=== PATIENT | female | born 1995 | race Two or more races ===

== ENCOUNTER 2025-07-28 10:08 | Observation (INO) | payer MEDICAID, SELFPAY ==
[2025-07-28 10:22] VITALS: BP 126/76; PULSE 80
[2025-07-28 10:23] VITALS: BP 126/76; PULSE 80; RESP 18; RESP 99; TEMP 36.7; BMI 17.4
--- NOTE | 2025-07-28 15:01 | PD.LDPN ---
Documentation for date of: 07/28/25 OB Labor Progress Note Pelvic Exam Dilation (cm): 4 Effacement (%): 60 station: -3 Amniotic membrane status: Intact Contractions Monitor mode: External Contraction frequency: 2-3 Contraction intensity: Mild Status status: Category l Assessment and Plan Comments: Triage Note Claudia is a 29yo with SIUP at 38&2wk presenting to L&D for cramping. No lof, no vaginal bleeding. Normal movement. She had very quick delivery of baby #4, without very painful ctx, so she is nervous that she could deliver quickly again. PMhx/PNC significant for: -Hx of GHTN with 5th -PNC at [facility] in [place] ROS negative other than what was described above. Vitals wnl, afebrile General: well developed, well nourished, no acute distress, conversant Cardiac: normal heart rate Lungs: breathing without distress Abdomen: soft, gravid, non-tender, no rebound or guarding Extremities: no pain with palpation of calves SCE: 4/60/-2, posterior after 4 hours from first SCE NST: Reactive, +accels, no decels, mod [id number] Compt[place]: occasional ctx/irritability Assessment: Claudia is a 29yo with SIUP at 38&2wk with no evidence of active labor based on SCE and toco. Unchanged from 4cm after 4 hours. Vitals wnl, benign exam. Reassuring status. Plan: -Gave option to patient of overnight observation vs going home with strict return precautions for regular ctx. Discussed not able to induce prior to 39wk, so would have to be in active labor to proceed with delivery. She voiced her understanding and after discussing with her significant other, she would like to go home. They live 20 min away. -Continue routine follow up with OBGYN within 1 week -Discussed return precautions at length -Safe for discharge home at this time Brianna Nguyen MD
== END 2025-07-28 15:18 | disposition home or self-care (01) ==
PROVIDERS: Admitting Provider Obstetrics & Gynecology; Visit Provider Obstetrics & Gynecology
DX: O47.1 False labor at or after 37 completed weeks of gestation (principal); Z3A.38 38 weeks gestation of pregnancy
CPT/HCPCS: 59899

== ENCOUNTER 2025-07-30 13:18 | Inpatient (IN) | payer MEDICAID, SELFPAY ==
[2025-07-30] VITALS (24 sets, daily range): BP systolic 115–139; BP diastolic 61–90; PULSE 63–106; RESP 18–100; TEMP 36.8; BMI 38.2; BMI 38.0
--- NOTE | 2025-07-30 15:30 | PD.LDHP ---
Documentation for date of: 07/30/25 OB Labor/Induct. HPI History of Present Illness Chief complaint: contractions : 6 Para: 5 Term pregnancies: 5 pregnancies: 0 Living children: 5 History of Abortions: Spontaneous and Elective: 0 History of Vaginal deliveries: 5 History of sections: No History of : No VERNON: 08/10/25 Gestational Age (weeks): 38 Gestational Age (days): 3 History of present illness: Patient presents from OB visit where her OB did SCE and told her she was 6cm dilated and instructed her to present to L&D. She continues to have irregular ctx since noted 4cm 2 days ago. No LOF. No vaginal bleeding. Normal movement. No fevers/chills. History of Present Adequate Care: Yes Narrative: -Hx of GHTN with 5th -Hx of prior precipitous delivery -PNC at [facility] in [place] Labs Maternal Blood Type: O Pos Labs: Positive: Rubella Titre, Negative: RPR, Hepatitis B, Chlamydia, Gonorrhea and Group Beta Strep and Unknown: HIV Review of Systems Review of Systems Narrative Review of Systems: Review of Systems Systems Reviewed: All systems reviewed, normal except as documented Constitutional Constitutional: Denies body ache(s), Denies chills, Denies fever(s) and Denies headache(s) ENT Ears, Nose, Mouth, and Throat: Denies headache(s) and Denies vertigo Cardiovascular Cardiovascular: Denies chest pain, Denies palpitations, Denies dyspnea and Denies syncope Respiratory Respiratory: Denies cough, Denies dyspnea Gastrointestinal Gastrointestinal: Denies nausea and Denies vomiting Neurologic Neurologic: Denies convulsions, Denies headache(s), Denies other visual disturbances, Denies syncope and Denies vertigo Past Medical History Family History OTHER FAMILY HX: non-contributory Surgical History SURGICAL: Negative Section OTHER SURGICAL HX: denies any Social History SOCIAL: . 5 kids. Denies ETOH/illicit drug use/tobacco Past Medical History Comments PMH COMMENT: BMI 38 No hx of abnormal pap smears or STIs Meds Home Medications and Allergies Home Medications ?Medication ?Instructions ?Recorded ?Confirmed ?Type ferrous sulfate 325 mg (65 mg 325 mg PO QDAY 05/19/20 03/13/23 History iron) tablet (iron) vits no.130-ferrous fum 1 tab PO QDAY 08/30/20 06/24/23 History 27 mg iron-folic acid 800 mcg tablet ( Vitamin) Allergies Allergy/AdvReac Type Severity Reaction Status Date / Time No Known Allergies Allergy Verified 03/13/23 21:51 OB Exam Physical Exam Vital signs: Temp Pulse Resp BP 98.2 F 100 18 123/75 07/30/25 13:25 07/30/25 13:35 07/30/25 13:25 07/30/25 13:35 Narrative: General: well developed, well nourished, no acute distress, conversant Cardiac: normal heart rate Lungs: breathing without distress Abdomen: soft, gravid, non-tender, no rebound or guarding Extremities: no pain with palpation of calves Detailed Labor and Delivery Exam Dilation (cm): 6 Effacement (%): 80 Cervix position: mid station: -2 Consistency: soft Presentation: Vertex Membranes: intact monitor accelerations: 15x15 monitor decelerations: None loader variability: Moderate (11-25) Contraction frequency (min): q4-7min OB Results Labs 07/30/25 16:24 OB Assessment & Plan Assessment and Plan (1) Active labor at term: Status: Acute Assessment and plan: Claudia is a 29yo with SIUP at 38&3wk presenting in active labor. Irregular ctx, SCE: 6/80/-1. Vitals wnl, benign exam. Reassuring assessment. PMhx/PNC significant for: -Hx of GHTN with 5th -Hx of prior precipitous delivery -PNC at [facility]- no records available at time of admission other than labs per RN Plan: -Admit to L&D -Establish IV, routine labs -CEFM -Clear liquid diet -Oil Pumper/consent re: -GBS status: negative -Request records -Anticipate -Safe to proceed
[2025-07-30 16:43] LABS: Syphilis Nonreactive (Nonreactive)
[2025-07-30 16:46] LABS: Basophils # (Auto) 0.0 Thou/mm3 (0.0-0.2); Basophils % (Auto) 0 % (0-2.5); Eosinophils # (Auto) 0.1 Thou/mm3 (0.0-0.5); Eosinophils % (Auto) 1 % (0-10); Hematocrit 28.6 % (36.0-46.0); Hemoglobin 10.0 g/dL (12.0-16.0); Immature Granulocytes Auto 0.02 Thou/mm3 (0.00-0.00); Lymphocytes # (Auto) 1.5 Thou/mm3 (1.0-4.8); Lymphocytes % (Auto) 22 % (10-50); Mean Corpuscular HGB Conc 35.0 g/dl (31.0-37.0); Mean Corpuscular Hemoglobin 31.7 pg (25.0-35.0); Mean Corpuscular Volume 91 fL (80-100); Monocytes # (Auto) 0.3 Thou/mm3 (0.0-0.8); Monocytes % (Auto) 5 % (0-12); Neutrophils # (Auto) 5.0 Thou/mm3 (1.8-7.7); Neutrophils % (Auto) 72 % (37-80); Nucleated Red Blood Cell # 0.00 Thou/mm3 (0.00-0.00); Nucleated Red Blood Cell % 0 /100 WBC (0); Platelet Count 158 Thou/mm3 (140-440); RDW Standard Deviation 44.2 fL (36.4-46.3); Red Blood Count 3.15 Miln/mm3 (4.00-5.20); White Blood Count 7.0 Thou/mm3 (3.6-11.0)
[2025-07-30] MEDS: fentaNYL CIT INJ 50 mCg/ML AMP 2ML 100 MCG IVP (18:33)
[2025-07-30] MEDS: OXYTOCIN in NS 20 units 20 UNIT/1,000 ML BAG 125 UNIT IV (19:39)
[2025-07-30] MEDS: METHYLERGONOVINE INJ 0.2 MG/ML VIAL IM (19:50)
--- NOTE | 2025-07-30 19:55 | OBDSUM_ITS ---
Data (Ashley) Data Hx Section: No : 6 Term: 5 : 0 Livin Abortions: Spontaneous & Theraputic: 0 Delivery Data (Ashley) Labor Data Initiation of labor: Spontaneous Induction/Augmentation Agent: Artificial ROM ROM date: 07/30/25 ROM time: 16:19 Amniotic membrane rupture type: Artificial Amniotic fluid description: Clear Delivery Data Complete dilation date: 07/30/25 Complete dilation time: 19:33 delivery date: 07/30/25 [place] delivery time: 19:33 Placenta delivery date: 07/30/25 Placenta delivery time: 19:44 Delivered by: Brianna Nguyen Delivery Method Delivery method: Precipitous Vaginal Delivery Presentation: Vertex Anesthesia Type Anesthesia Type: None Placenta Cord blood sent to lab: Yes cord blood collection: Cord Blood Type EBL Estimated blood loss (ml): 300 Umbilical Cord cord description: 3 Vessels Additional Procedures Claudia is a 29yo s/p uncomplicated at 38&3wk after presenting in active labor, delivering at 1933 on 07/30/2025. On presentation, SCE was 6cm. She progressed with only AROM to complete. RNs were getting her ready for epidural when, per their report, infant's head spontaneously delivered. They pulled patient's legs back to assist with delivery of the shoulder and then the rest of the delivered. I was called after the delivery and when I presented to the room, infant was on warmer, vigorous. Apgars 8/9. Cord blood collected for typing. With fundal massage and cord traction, placenta delivered spontaneously and intact with 3 vessel centrally inserted cord (trailing membranes gently teased out in their entirety). Bimanual massage performed and IV pitocin given per protocol with fundus then firm at u-2cm and hemostasis noted. Inspection of perineum and vagina revealed small hemostatic gee at the posterior forschette, no repair needed. Sweep just within cervix/LINDA performed which retrieved a small amount of clot. 0.2mg IM methergine given for prophylaxis against future bleeding given grandmultiparity. All counts correct x2. Mom and infant were doing well when I left the room. Brianna Nguyen MD Complications Complications: none [place] Data (Ashley) [place] Data 's gender: Female Identification band number: [id number] 1 minute: 8 5 minutes: 9
[2025-07-31] VITALS: BP 139/85; PULSE 71; RESP 16; TEMP 37.2; O2SAT 98
[2025-07-31 04:00] VITALS: BP 113/70; PULSE 73; RESP 16; TEMP 36.9; O2SAT 98
[2025-07-31 05:52] LABS: Basophils # (Auto) 0.0 Thou/mm3 (0.0-0.2); Basophils % (Auto) 0 % (0-2.5); Eosinophils # (Auto) 0.0 Thou/mm3 (0.0-0.5); Eosinophils % (Auto) 1 % (0-10); Hematocrit 29.0 % (36.0-46.0); Hemoglobin 9.9 g/dL (12.0-16.0); Immature Granulocytes Auto 0.03 Thou/mm3 (0.00-0.00); Lymphocytes # (Auto) 1.5 Thou/mm3 (1.0-4.8); Lymphocytes % (Auto) 20 % (10-50); Mean Corpuscular HGB Conc 34.1 g/dl (31.0-37.0); Mean Corpuscular Hemoglobin 31.5 pg (25.0-35.0); Mean Corpuscular Volume 92 fL (80-100); Monocytes # (Auto) 0.4 Thou/mm3 (0.0-0.8); Monocytes % (Auto) 5 % (0-12); Neutrophils # (Auto) 5.9 Thou/mm3 (1.8-7.7); Neutrophils % (Auto) 75 % (37-80); Nucleated Red Blood Cell # 0.00 Thou/mm3 (0.00-0.00); Nucleated Red Blood Cell % 0 /100 WBC (0); Platelet Count 164 Thou/mm3 (140-440); RDW Standard Deviation 45.4 fL (36.4-46.3); Red Blood Count 3.14 Miln/mm3 (4.00-5.20); White Blood Count 7.9 Thou/mm3 (3.6-11.0)
[2025-07-31 09:38] VITALS: BP 118/75; PULSE 70; RESP 16; TEMP 36.9; O2SAT 98
--- NOTE | 2025-07-31 10:16 | PD.LDDS ---
DS: Providers Provider Date of admission: 07/30/25 14:07 Primary care physician: Tai Jackson MD Admitting Provider: Brianna Nguyen MD Attending Provider on Admission: Brianna Nguyen MD Consults: 07/30/25 19:53 Referral Routine Comment: Attending Provider on DC: Brianna Nguyen MD Discharging Provider: Brianna Nguyen MD DS: Diagnosis Discharge Diagnosis (1) Normal labor and delivery: Status: Acute (2) Obesity affecting in third trimester: Status: Acute Problem List Completed Was Problem List Reviewed/Reconciled?: Yes Summary/Hosp Course Brief History: Claudia is a 29yo s/p uncomplicated at 38&3wk after presenting in active labor, delivering at 1933 on 07/30/2025. She has had an uncomplicated course, meeting all milestones and feels ready for discharge home. She is ambulating without lightheadedness, tolerating regular diet no n/v, spontaneously voiding without issue. She has no chest pain or shortness of breath. No fevers or chills. Minimal, appropriate discomfort. Vitals normal, benign exam. Hemodynamically stable with no evidence of infection. PP Hgb 9.9 from 10. Peripartum Data Delivery Method: Precipitous Vaginal Delivery Status at Discharge Functional status at discharge: independent ambulation Overall status at discharge: patient is back to baseline Time Spent with Patient Time attestation: Total time spent providing and/or coordinating discharge services: Exam Vital Signs Temp Pulse Resp BP Pulse Ox O2 Del Method 98.5 F 70 16 118/75 98 Room Air 07/31/25 09:38 07/31/25 09:38 07/31/25 09:38 07/31/25 09:38 07/31/25 09:38 07/31/25 09:38 Narrative Exam General: well developed, well nourished, no acute distress, conversant Cardiac: normal heart rate Lungs: breathing without distress Abdomen: soft, post-gravid, non-tender, no rebound or guarding, Fundus firm at u-3cm. Extremities: no pain with palpation of calves, trace edema of BLE Discharge Plan Plan Patient Disposition: HOME (Self Care) Patient condition on transfer: Stable Prescriptions/Referrals Prescriptions/Med Rec: New docusate sodium 100 mg Capsule 100 mg PO BID 10 Days Qty: 20 0RF ibuprofen 800 mg tablet 800 mg PO Q8H PRN (Reason: See Comments) 10 Days Qty: 20 0RF No Action ferrous sulfate [iron] 325 mg (65 mg iron) Tablet 325 mg PO QDAY Vitamin 27 mg iron- 800 mcg Tablet 1 tab PO QDAY Referrals: Tai Raphael MD [Primary Care Provider] Patient/Caregiver Discharge Instructions Discharge Activity: activity as tolerated and other Other Discharge Activity Instructions:: vaginal rest and no heavy lifting more than 10 pounds for 6 weeks Other Discharge Diet Instructions: regular Education Materials: After a Vaginal Print Language: Swedish Activity Restrictions/Additional Instructions: follow up with your OBGYN in 2 weeks for visit, call clinic to schedule appointment Stand Alone Forms: Josiane Award Info., Patient Portal Info Letter Discharge Order Discharge Orders: Discharge (Routine); Ordered 07/31/25 Ordered By: Brianna Nguyen Planned Discharge Date 07/31/25 (2) Obesity affecting in third trimester Qualifiers: Obesity type affecting : unspecified obesity Qualified Code(s): O99.213 - Obesity complicating , third trimester
[2025-07-31 11:52] VITALS: BP 130/85; PULSE 71; RESP 18; TEMP 36.8; O2SAT 99
[2025-07-31 16:51] LABS: HIV (1&2) Antibody Rapid Non-Reactive
[2025-07-31 17:04] VITALS: BP 110/75; PULSE 81; RESP 16; TEMP 37.3; O2SAT 99
[2025-07-31 19:34] VITALS: BP 133/84; PULSE 87; RESP 18; TEMP 36.9; O2SAT 98
== END 2025-07-31 21:04 | disposition home or self-care (01) | DRG 560 ==
LOC: S4SX 19:50 → S4NX 22:32
PROVIDERS: Admitting Provider Obstetrics & Gynecology; PCP Internal Medicine; Visit Provider Obstetrics & Gynecology
DX: O62.3 Precipitate labor (principal); O99.214 Obesity complicating childbirth; Z37.0 Single live birth; Z3A.38 38 weeks gestation of pregnancy; Z87.59 Personal history of other complications of pregnancy, childbirth and the puerperium
CPT/HCPCS: 36415; 59025; 59409; 85025; 86703; 86780; 86850; 86900; 86901; 86923; J2210; J2590; J3010; A9270